=== PATIENT | female | born 1985 | race African-American/Black ===

== ENCOUNTER 2017-04-17 21:13 | Emergency (ER) | payer OTHER ==
[2017-04-17] MEDS ORDERED: IBUPROFEN 600 MG TABLET PO ONE (23:48)
[2017-04-17] MEDS ORDERED: LORAZEPAM 1 MG TABLET PO ONE (23:48)
--- NOTE | 2017-04-18 01:17 | RADIOLOGY REPORT (SQ) ---
EXAM DESCRIPTION: CHEST SINGLE VIEW COMPLETED DATE/TIME: 04/18/2017 12:38 am REASON FOR STUDY: sob COMPARISON: None. EXAM PARAMETERS: NUMBER OF VIEWS: One view. TECHNIQUE: Single frontal radiographic view of the chest acquired. RADIATION DOSE: NA LIMITATIONS: None. FINDINGS: LUNGS AND PLEURA: No opacities, masses or pneumothorax. No pleural effusion. MEDIASTINUM AND HILAR STRUCTURES: No masses. Contour normal. HEART AND VASCULAR STRUCTURES: Heart normal in size. Normal vasculature. BONES: No acute findings. Moderate dextroconvexity of the mid thoracic spine. HARDWARE: None in the chest. OTHER: No other significant finding. IMPRESSION: NO ACUTE RADIOGRAPHIC FINDING IN THE CHEST. TECHNICAL DOCUMENTATION: JOB ID: [id number]
--- NOTE | 2017-04-18 01:31 | ER Document Report ---
ED General - General Chief Complaint: Chest Wall Pain Stated Complaint: CHEST,NECK PAIN Time Seen by Provider: 04/17/17 23:40 Notes: Patient is a 31-year-old female without past medical history who presents with multiple complaints. Patient's main concern is that she has been having a sharp , stabbing pain to the left posterior scalp at the level of the occiput. The pain is intermittent and stabbing nature. Nothing improves or worsens the pain. Patient denies any trauma to the area. She has never had similar symptoms in the past. She denies seeing her primary care doctor regarding this concern. She felt that the pain was radiating from the back of her scalp down to her neck and chest today which is what prompted her come to the emergency department. She states the pain is no longer in her chest or neck only in the posterior aspect of her scalp. She denies any fever or constitutional symptoms. No associated nausea, vomiting or diaphoresis. She denies any cardiac history. No history of DVT or pulmonary embolus. She denies any pleuritic pain. No use of estrogen. TRAVEL OUTSIDE OF THE [place] IN LAST 30 DAYS: No - Related Data Allergies/Adverse Reactions: metoclopramide [From Reglan] Adverse Reaction (Verified 04/17/17 22:55) Past Medical History - General Information source: Patient - Social History Smoking Status: Never Smoker Frequency of alcohol use: None Drug Abuse: None Lives with: Spouse/Significant other Family History: Reviewed & Not Pertinent - Past Medical History Cardiac Medical History: Denies: Hx Heart Attack, Hx Hypertension Pulmonary Medical History: Reports: Hx Pneumonia - Hx of 2005 Denies: Hx Asthma, Hx Bronchitis, Hx COPD Neurological Medical History: Denies: Hx Cerebrovascular Accident, Hx Seizures Renal/ Medical History: Denies: Hx Peritoneal Dialysis GI Medical History: Musculoskeltal Medical History: Denies Hx Arthritis Infectious Medical History: Past Surgical History: Reports: Hx Cholecystectomy. Denies: Hx Pacemaker - Immunizations Hx Diphtheria, Pertussis, Tetanus Vaccination: Yes Review of Systems - Review of Systems Notes: Constitutional: Negative for fever. HENT: Negative for sore throat. Eyes: Negative for visual changes. Cardiovascular: Positive for chest pain. Respiratory: Negative for shortness of breath. Gastrointestinal: Negative for abdominal pain, vomiting or diarrhea. Genitourinary: Negative for dysuria. Musculoskeletal: Negative for back pain. Skin: Negative for rash. Neurological: Negative for headaches, weakness or numbness. 10 point ROS negative except as marked above and in HPI. Physical Exam - Vital signs Vitals: Temp Pulse Resp BP Pulse Ox 98.7 F 87 20 127/96 H 99 04/17/17 22:31 10 22:31 04/17/17 22:31 04/17/17 22:31 04/17/17 22:31 Interpretation: Normal Notes: PHYSICAL EXAMINATION: GENERAL: Well-appearing, well-nourished and in no acute distress. HEAD: Atraumatic, normocephalic. EYES: Pupils equal round and reactive to light, extraocular movements intact, sclera anicteric, conjunctiva are normal. ENT: nares patent, oropharynx clear without exudates. Moist mucous membranes. NECK: Normal range of motion, supple without lymphadenopathy LUNGS: Breath sounds clear to auscultation bilaterally and equal. No wheezes rales or rhonchi. HEART: Regular rate and rhythm without murmurs ABDOMEN: Soft, nontender, normoactive bowel sounds. No guarding, no rebound. No masses appreciated. EXTREMITIES: Normal range of motion, no pitting or edema. No cyanosis. NEUROLOGICAL: No focal neurological deficits. Moves all extremities spontaneously and on command. PSYCH: Normal mood, normal affect. SKIN: Warm, Dry, normal turgor, no rashes or lesions noted. No appreciable swelling or deformity to the left posterior scalp where patient reports pain Course - Re-evaluation Re-evalutation: 04/18/17 01:26 Patient presents with multiple vague complaints that did not appear to be concerning for any acute life-threatening pathology. Vitals are within normal limits at triage and at time of discharge. Physical examination is unremarkable. Patient has tolerated oral intake without difficulty. Patient was not noted to be in distress at any point during their ER visit. A single troponin was obtained as patient was complaining of chest pain and neck pain which is noted to be normal. Chest x-rays likewise clear. She did complain of pharyngeal symptoms and has no evidence of an acute tonsillitis, epiglottitis, Avi's angina, or an acute dental infection. At this time, based on the reassuring evaluation, I do not suspect an acute TN, pulmonary embolus, aortic dissection, acute intra-abdominal pathology, stroke, or sepsis.Will discharge with return precautions and follow-up recommendations. Verbal discharge instructions given a the bedside and opportunity for questions given. Medication warnings reviewed. Patient is in agreement with this plan and has verbalized understanding of return precautions and the need for primary care follow-up in the next 24-72 hours. - Vital Signs Vital signs: Temp Pulse Resp BP Pulse Ox 98.5 F 78 18 130/93 H 99 04/18/17 01:40 04/18/17 01:40 04/18/17 01:40 04/18/17 01:40 04/18/17 01:40 - Diagnostic Test Radiology reviewed: Image reviewed, Reports reviewed Radiology results interpreted by me: 04/18/17 02:23 Chest x-ray: No acute infiltrate or pneumothorax - EKG Interpretation by Me Additional EKG results interpreted by me: 04/18/17 02:23 Normal sinus rhythm. Rate 85. No ST elevations or depressions. QTC is 419. Discharge - Discharge Clinical Impression: Neck pain Chest pain Qualifiers: Chest pain type: unspecified Qualified Code(s): R07.9 - Chest pain, unspecified Condition: Good Disposition: HOME, SELF-CARE Additional Instructions: Please return to the emergency room immediately if you experience any concerning symptoms including high fevers, severe headache, chest pain, difficulty breathing, abdominal pain, slurred speech, numbness or weakness in your arms or legs, or any other symptom that concerns you. Forms: Return to Work
[2017-04-18 01:42] VITALS: BP 130/93
--- NOTE | 2017-04-18 08:10 | EKG REPORT ---
SEVERITY:- NORMAL ECG - SINUS RHYTHM : Confirmed by: Aparna Mims 18-Apr-2017 08:09:16
== END 2017-04-18 01:40 | disposition home or self-care (01) ==
LOC: ER 21:13
DX: R07.9 Chest pain, unspecified (principal); M54.2 Cervicalgia; Z90.49 Acquired absence of other specified parts of digestive tract
CPT/HCPCS: 36415; 71010; 84484; 93005; 93010; 99284

== ENCOUNTER 2017-12-14 23:54 | Emergency (ER) | payer OTHER ==
[2017-12-15] MEDS ORDERED: ONDANSETRON ODT 4 MG TAB (6 TAB/ER DISP) PO PRN (01:26)
[2017-12-15] MEDS ORDERED: ONDANSETRON 4 MG TAB.RAPDIS PO ONE (01:26)
[2017-12-15] MEDS ORDERED: BUTALB/ACETAMINOPHEN/CAFFEINE 1 TAB EACH PO ONE (01:28)
--- NOTE | 2017-12-15 01:28 | ER Document Report ---
ED General - General Chief Complaint: Headache Stated Complaint: HEADACHE Time Seen by Provider: 12/15/17 00:58 TRAVEL OUTSIDE OF THE [place] IN LAST 30 DAYS: No - HPI Patient complains to provider of: Frontal headache nausea Notes: States happened prior to arrival no history of headaches states mild intensity. Patient states headache encouraged to take her blood pressure was elevated at home because the patient has some concern therefore came to the ER for further evaluation. Patient currently is not taking any medications denies any history of hypertension. Patient denies any recent travel or head trauma denies any fever chills nausea vomiting diarrhea. Patient is very delightful and smiling on evaluation denies any neck pain. - Related Data Allergies/Adverse Reactions: metoclopramide [From [employer]] Adverse Reaction (Verified 04/17/17 22:55) Past Medical History - Social History Smoking Status: Never Smoker Chew tobacco use (# tins/day): No Frequency of alcohol use: None Drug Abuse: None Family History: Reviewed & Not Pertinent Patient has suicidal ideation: No Patient has homicidal ideation: No - Past Medical History Cardiac Medical History: Denies: Hx Heart Attack, Hx Hypertension Pulmonary Medical History: Reports: Hx Pneumonia - Hx of 2005 Denies: Hx Asthma, Hx Bronchitis, Hx COPD Neurological Medical History: Denies: Hx Cerebrovascular Accident, Hx Seizures Renal/ Medical History: Denies: Hx Peritoneal Dialysis GI Medical History: Musculoskeltal Medical History: Denies Hx Arthritis Infectious Medical History: Past Surgical History: Reports: Hx Cholecystectomy. Denies: Hx Pacemaker - Immunizations Hx Diphtheria, Pertussis, Tetanus Vaccination: Yes Review of Systems - Review of Systems Constitutional: No symptoms reported EENT: No symptoms reported Cardiovascular: No symptoms reported Respiratory: No symptoms reported Gastrointestinal: No symptoms reported Genitourinary: No symptoms reported Female Genitourinary: No symptoms reported Musculoskeletal: No symptoms reported Skin: No symptoms reported Hematologic/Lymphatic: No symptoms reported Neurological/Psychological: Headaches -: Yes All other systems reviewed and negative Physical Exam - Vital signs Vitals: Temp Pulse Resp BP Pulse Ox 98.6 F 86 18 144/104 H 98 12/14/17 23:58 12/14/17 23:58 12/14/17 23:58 12/14/17 23:58 12/14/17 23:58 Interpretation: Normal - General General appearance: Appears well, Alert - HEENT Head: Normocephalic, Atraumatic Eyes: Normal Pupils: PERRL - Respiratory Respiratory status: No respiratory distress Chest status: Nontender Breath sounds: Normal Chest palpation: Normal - Cardiovascular Rhythm: Regular Heart sounds: Normal auscultation Murmur: No - Abdominal Inspection: Normal Distension: No distension Bowel sounds: Normal Tenderness: Nontender Organomegaly: No organomegaly - Back Back: Normal, Nontender - Extremities General upper extremity: Normal inspection, Nontender, Normal color, Normal ROM , Normal temperature General lower extremity: Normal inspection, Nontender, Normal color, Normal ROM , Normal temperature, Normal weight bearing. No: Yifan's sign - Neurological Neuro grossly intact: Yes Cognition: Normal Orientation: AAOx4 Allan Coma Scale Eye Opening: Spontaneous [place] Coma Scale Verbal: Oriented [place] Coma Scale Motor: Obeys Commands [place] Coma Scale Total: 15 Speech: Normal Motor strength normal: LUE, RUE, LLE, RLE Sensory: Normal - Psychological Associated symptoms: Normal affect, Normal mood - Skin Skin Temperature: Warm Skin Moisture: Dry Skin Color: Normal Course - Re-evaluation Re-evalutation: 12/15/17 04:26 Patient with a frontal headache possibly component of a tension headache. Multiple treatment options and modalities were reviewed with the patient I did recommend Tylenol Motrin along with lidocaine patch to back neck initially was going to get the patient Compazine Zofran however states that she has a bad reaction with Reglan therefore held off on the Compazine give the patient Zofran for nausea will give the patient Fioricet if Tylenol Motrin and lidocaine patch does not work she agrees with this treatment modality did educate the patient about hypertension patient otherwise neurologically intact smiling laughing with a normal physical examination will discharge home - Vital Signs Vital signs: Temp Pulse Resp BP Pulse Ox 98.3 F 86 16 133/102 H 100 12/15/17 01:38 12/14/17 23:58 12/15/17 01:38 12/15/17 01:38 12/15/17 01:38 Discharge - Discharge Clinical Impression: Nausea Headache Qualifiers: Headache type: tension-type Headache chronicity pattern: unspecified pattern Intractability: not intractable Qualified Code(s): G44.209 - Tension-type headache, unspecified, not intractable Hypertension Qualifiers: Hypertension type: unspecified Qualified Code(s): I10 - Essential (primary) hypertension Condition: Good Disposition: HOME, SELF-CARE Instructions: Family Physicians / Practices, Tension Headache ([facility]) Additional Instructions: Your physical examination is not reveal any significant pathology. More likely you are experiencing a tension headache. Please follow-up with your primary care physician. Please take medications as prescribed I would also recommend taking 600 mg of motrin and 650-1000 mg of Tylenol with the Motrin 3 times a day. I recommend following up with your physician or the physicians is provided for further evaluation of your blood pressure. Prescriptions: Butalb/Acetaminophen/Caffeine [Fioricet (50-325-40 mg) Tablet] 1 tab PO Q6 #14 tab Ondansetron [Zofran Odt] 4 mg PO Q6 PRN #30 tab.rapdis PRN Reason: For Nausea/Vomiting Forms: Elevated Blood Pressure Referrals: RO JAIN MD [Primary Care Provider] - Follow up in 3-5 days
[2017-12-15 01:44] VITALS: BP 133/102
== END 2017-12-15 01:44 | disposition home or self-care (01) ==
LOC: ER 23:54
DX: G44.209 Tension-type headache, unspecified, not intractable (principal); R11.0 Nausea; R03.0 Elevated blood-pressure reading, without diagnosis of hypertension; Z90.49 Acquired absence of other specified parts of digestive tract
CPT/HCPCS: 99284; J3490; S0119

== ENCOUNTER 2017-12-16 15:31 | Emergency (ER) | payer OTHER ==
[2017-12-16] MEDS ORDERED: ONDANSETRON 4 MG TAB.RAPDIS PO ONE (15:57)
[2017-12-16] MEDS ORDERED: KETOROLAC TROMETHAMINE 10 MG TABLET PO ONE (15:58)
--- NOTE | 2017-12-16 15:58 | ER Document Report ---
ED Medical Screen (RME) - General Chief Complaint: Numbness of Arm Stated Complaint: CHILLS/ARM NUMBNESS Time Seen by Provider: 12/16/17 15:51 Mode of Arrival: Ambulatory Information source: Patient Notes: 32 yr old female presents with chills, body aches nausea vomtiing I have greeted and performed a rapid initial assessment of this patient. A comprehensive ED assessment and evaluation of the patient, analysis of test results and completion of the medical decision making process will be conducted by additional ED providers. PHYSICAL EXAMINATION: GENERAL: Well-appearing, well-nourished and in no acute distress. HEAD: Atraumatic, normocephalic. EYES: Pupils equal round extraocular movements intact, conjunctiva are normal. ENT: Nares patent NECK: Normal range of motion LUNGS: No respiratory distress Musculoskeletal: Normal range of motion NEUROLOGICAL: Normal speech, normal gait. PSYCH: Normal mood, normal affect. SKIN: Warm, Dry, normal turgor, no rashes or lesions noted. TRAVEL OUTSIDE OF THE [place] IN LAST 30 DAYS: No - Related Data Allergies/Adverse Reactions: metoclopramide [From Reglan] Adverse Reaction (Verified 12/16/17 15:32) Past Medical History - Past Medical History Cardiac Medical History: Reports: Hx Hypertension Denies: Hx Heart Attack Pulmonary Medical History: Reports: Hx Pneumonia - Hx of 2005 Denies: Hx Asthma, Hx Bronchitis, Hx COPD Neurological Medical History: Denies: Hx Cerebrovascular Accident, Hx Seizures Renal/ Medical History: Denies: Hx Peritoneal Dialysis GI Medical History: Musculoskeltal Medical History: Denies Hx Arthritis Infectious Medical History: Past Surgical History: Reports: Hx Cholecystectomy. Denies: Hx Pacemaker - Immunizations Hx Diphtheria, Pertussis, Tetanus Vaccination: Yes Physical Exam - Vital signs Vitals: Temp Pulse Resp BP Pulse Ox 98.6 F 117 H 24 H 155/115 H 97 12/16/17 15:36 12/16/17 15:36 12/16/17 15:36 12/16/17 15:36 12/16/17 15:36 Course - Vital Signs Vital signs: Temp Pulse Resp BP Pulse Ox 98.6 F 117 H 24 H 155/115 H 97 12/16/17 15:36 12/16/17 15:36 12/16/17 15:36 12/16/17 15:36 12/16/17 15:36 Doctor's Discharge - Discharge Referrals: RO JAIN MD [Primary Care Provider] - Follow up as needed
--- NOTE | 2017-12-16 18:00 | ER Document Report ---
ED General - General Chief Complaint: Numbness of Arm Stated Complaint: CHILLS/ARM NUMBNESS Time Seen by Provider: 12/16/17 15:51 Mode of Arrival: Ambulatory Notes: The patient is a 32-year-old female who presents with intermittent tingling in her hands and intermittent headaches. On arrival to the ER, she is having no symptoms at this time. She denies neck pain, blurry vision, fevers, abdominal pain, nausea, vomiting, diarrhea, chest pain or shortness of breath. TRAVEL OUTSIDE OF THE [place] IN LAST 30 DAYS: No - Related Data Allergies/Adverse Reactions: metoclopramide [From Reglan] Adverse Reaction (Verified 12/16/17 15:32) Past Medical History - General Information source: Patient - Social History Smoking Status: Never Smoker Family History: Reviewed & Not Pertinent Patient has suicidal ideation: No Patient has homicidal ideation: No - Past Medical History Cardiac Medical History: Reports: Hx Hypertension Denies: Hx Heart Attack Pulmonary Medical History: Reports: Hx Pneumonia - Hx of 2005 Denies: Hx Asthma, Hx Bronchitis, Hx COPD Neurological Medical History: Denies: Hx Cerebrovascular Accident, Hx Seizures Renal/ Medical History: Denies: Hx Peritoneal Dialysis GI Medical History: Musculoskeltal Medical History: Denies Hx Arthritis Infectious Medical History: Past Surgical History: Reports: Hx Cholecystectomy. Denies: Hx Pacemaker - Immunizations Hx Diphtheria, Pertussis, Tetanus Vaccination: Yes Review of Systems - Review of Systems Notes: REVIEW OF SYSTEMS: CONSTITUTIONAL: -fevers, -chills EENT: -eye pain, -difficulty swallowing, -nasal congestion CARDIOVASCULAR: -chest pain, -syncope. RESPIRATORY: -cough, -SOB GASTROINTESTINAL: -abdominal pain, -nausea, -vomiting, -diarrhea GENITOURINARY: -dysuria, -hematuria MUSCULOSKELETAL: -back pain, -neck pain SKIN: -rash or skin lesions. HEMATOLOGIC: -easy bruising or bleeding. LYMPHATIC: -swollen, enlarged glands. NEUROLOGICAL: -altered mental status or loss of consciousness, +headache, +hand tingling PSYCHIATRIC: -anxiety, -depression. ALL OTHER SYSTEMS REVIEWED AND NEGATIVE. Physical Exam - Vital signs Vitals: Temp Pulse Resp BP Pulse Ox 98.6 F 117 H 24 H 155/115 H 97 12/16/17 15:36 12/16/17 15:36 12/16/17 15:36 12/16/17 15:36 12/16/17 15:36 - Notes Notes: PHYSICAL EXAMINATION: GENERAL: Well-appearing, well-nourished and in no acute distress. HEAD: Atraumatic, normocephalic. EYES: Pupils equal round and reactive to light, extraocular movements intact, sclera anicteric, conjunctiva are normal. ENT: nares patent, oropharynx clear without exudates. Moist mucous membranes. NECK: Normal range of motion, supple without lymphadenopathy LUNGS: Breath sounds clear to auscultation bilaterally and equal. No wheezes rales or rhonchi. HEART: Tachycardia, regular rhythm ABDOMEN: Soft, nontender, normoactive bowel sounds. No guarding, no rebound. No masses appreciated. EXTREMITIES: Normal range of motion, no pitting or edema. No cyanosis. NEUROLOGICAL: Cranial nerves grossly intact. Normal speech, normal gait. Normal sensory and motor exams. PSYCH: Normal mood, normal affect. SKIN: Warm, Dry, normal turgor, no rashes or lesions noted. Course - Re-evaluation Re-evalutation: Patient appears well and is having no symptoms upon my evaluation. She was mildly tachycardic, so blood work and IV fluids provided to patient. Blood work is unremarkable, other than a slight leukocytosis, which she has had higher values in the past. After 2 L IV fluids, her tachycardia resolved. No symptoms at this time. Instructed her to keep hydrated and follow with her primary care physician for further evaluation treatment. - Vital Signs Vital signs: Temp Pulse Resp BP Pulse Ox 99.6 F 117 H 15 120/93 H 98 12/16/17 20:29 12/16/17 15:36 12/16/17 20:29 12/16/17 20:29 12/16/17 20:29 - Laboratory Result Diagrams: 12/16/17 18:05 12/16/17 18:05 Laboratory results interpreted by me: 12/16/17 12/16/17 18:05 18:05 WBC 12.1 H RBC 5.44 H MCV 75 L MCH 24.6 L RDW 14.8 H Seg Neuts % (Manual) 92 H Lymphocytes % (Manual) 3 L Monocytes % (Manual) 0 L Abs Neuts (Manual) 11.1 H Abs Lymphs (Manual) 0.4 L Abs Monocytes (Manual) 0.0 L AST 43 H Discharge - Discharge Clinical Impression: Tingling of upper extremity Condition: Stable Disposition: HOME, SELF-CARE Additional Instructions: Drink plenty of fluids and follow-up with your primary care physician for further evaluation and treatment. You may take Tylenol Motrin for any headaches. Return to the ER if you notice any worsening symptoms or have any other concerns. Forms: Elevated Blood Pressure Referrals: RO JAIN MD [Primary Care Provider] - Follow up as needed
[2017-12-16 18:05] LABS: APPEARANCE,URINE CLEAR; BILIRUBIN,URINE NEGATIVE (NEGATIVE); COLOR,URINE YELLOW; GLUCOSE, URINE NEGATIVE (NEGATIVE); KETONES,URINE NEGATIVE (NEGATIVE); LEUKOCYTE ESTERASE,URINE NEGATIVE (NEGATIVE); NITRITE,URINE NEGATIVE (NEGATIVE); PROTEIN,URINE NEGATIVE (NEGATIVE); URINE SPECIFIC GRAVITY 1.019; UROBILINOGEN,URINE NEGATIVE mg/dL (<2.0)
[2017-12-16] MEDS: NORMAL SALINE 1000 ML 1,000 ML IV PRN ×2 (18:11→18:58)
[2017-12-16 18:44] LABS: HEMOGLOBIN 13.4 g/dL (12.0-15.5); MEAN CORPUSCULAR HEMOGLOBIN 24.6 pg (27.0-33.4); MEAN CORPUSCULAR HGB CONC 32.6 g/dL (32.0-36.0); MEAN CORPUSCULAR VOLUME 75 fl (80-97); PLATELET COUNT 331 10^3/uL (150-450); RED BLOOD COUNT 5.44 10^6/uL (3.72-5.28); RED CELL DISTRIBUTION WIDTH 14.8 % (11.5-14.0); WHITE BLOOD COUNT 12.1 10^3/uL (4.0-10.5)
[2017-12-16 18:54] LABS: ALANINE AMINOTRANSFERASE 22 U/L (9-52); ALBUMIN 4.1 g/dL (3.5-5.0); ALKALINE PHOSPHATASE 123 U/L (38-126); ANION GAP 13 (5-19); ASPARTATE AMINO TRANSFERASE 43 U/L (14-36); BILIRUBIN,DIRECT 0.4 mg/dL (0.0-0.4); BILIRUBIN,TOTAL 0.6 mg/dL (0.2-1.3); BLOOD UREA NITROGEN 12 mg/dL (7-20); CALCIUM 9.5 mg/dL (8.4-10.2); CARBON DIOXIDE 27 mmol/L (22-30); CHLORIDE 103 mmol/L (98-107); GLUCOSE 84 mg/dL (75-110); POTASSIUM 3.8 mmol/L (3.6-5.0); SODIUM 142.8 mmol/L (137-145); TOTAL PROTEIN 7.5 g/dL (6.3-8.2)
[2017-12-16 19:07] LABS: ABSOLUTE LYMPHOCYTES# (MANUAL) 0.4 10^3/uL (0.5-4.7); ABSOLUTE NEUTROPHILS# (MANUAL) 11.1 10^3/uL (1.7-8.2); BASOPHILS % (MANUAL) 0 % (0-2); EOSINOPHILS % (MANUAL) 5 % (0-6); LYMPHOCYTES % (MANUAL) 3 % (13-45); MONOCYTES % (MANUAL) 0 % (3-13); SEGMENTED NEUTROPHILS % (MAN) 92 % (42-78); TOTAL CELLS COUNTED 100
[2017-12-16 19:08] LABS: ANISOCYTOSIS SLIGHT; HYPOCHROMASIA SLIGHT; PLATELET COMMENT ADEQUATE
[2017-12-16 19:11] LABS: FREE T3 3.23 pg/mL (2.77-5.27); FREE T4 (FREE THYROXINE) 1.2 ng/dL (0.78-2.19)
[2017-12-16 19:25] LABS: THYROID STIMULATING HORMONE 0.64 uIU/mL (0.47-4.68)
[2017-12-16 20:32] VITALS: BP 120/93
== END 2017-12-16 20:33 | disposition home or self-care (01) ==
LOC: ER 15:31
DX: R20.2 Paresthesia of skin (principal); R51 Headache; I10 Essential (primary) hypertension; R00.0 Tachycardia, unspecified
CPT/HCPCS: 99284; 96360; 96361; 36415; 84439; 84443; 85025; 81025; 80053; 81001; 84481; S0119; J7030; J3490

== ENCOUNTER 2018-04-01 10:56 | Emergency (ER) | payer OTHER ==
[2018-04-01] MEDS ORDERED: BUTALB/ACETAMINOPHEN/CAFFEINE 1 TAB EACH PO ONE (11:30)
[2018-04-01] MEDS ORDERED: DIPHENHYDRAMINE HCL 50 MG CAPSULE PO ONE (11:30)
[2018-04-01] MEDS ORDERED: IBUPROFEN 800 MG TABLET PO ONE (11:30)
[2018-04-01] MEDS ORDERED: ONDANSETRON 4 MG TAB.RAPDIS PO ONE (11:31)
--- NOTE | 2018-04-01 11:35 | ER Document Report ---
ED General - General Chief Complaint: Headache Stated Complaint: BLOOD PRESSURE ISSUE Time Seen by Provider: 04/01/18 11:08 Mode of Arrival: Ambulatory Information source: Patient, [facility] Records Notes: 32-year-old female presents with complaint of headache and nausea. Patient states symptoms started 1 day prior to arrival. Headache is located in her forehead and described as a mild throbbing pain. Patient has had associated nausea without vomiting. She denies photophobia, blurred vision, slurred speech , difficulty with ambulation, head injury, fever, recent illness. Patient has had prior similar headaches. She states that she was prescribed medication recently but has not been able to fill it yet. Patient also states that she has been out of her depression medication for a few weeks. We will prompted her to come to the emergency room is that she checked her blood pressure on a home blood pressure machine and it read 178/58. Upon her arrival to the emergency department blood pressure is 130/90. TRAVEL OUTSIDE OF THE [place] IN LAST 30 DAYS: No - HPI Onset: Yesterday Onset/Duration: Gradual, Persistent Quality of pain: Throbbing Severity: Mild Associated symptoms: Nausea. denies: Chest pain, Fever, Vomiting, Shortness of breath Exacerbated by: Denies Relieved by: Denies Similar symptoms previously: Yes Recently seen / treated by doctor: Yes - Related Data Allergies/Adverse Reactions: metoclopramide [From Reglan] Adverse Reaction (Verified 12/16/17 15:32) Past Medical History - General Information source: Patient - Social History Smoking Status: Never Smoker Frequency of alcohol use: None Drug Abuse: None Lives with: Family Family History: Reviewed & Not Pertinent Patient has suicidal ideation: No Patient has homicidal ideation: No - Past Medical History Cardiac Medical History: Reports: Hx Hypertension Denies: Hx Heart Attack Pulmonary Medical History: Reports: Hx Pneumonia - Hx of 2005 Denies: Hx Asthma, Hx Bronchitis, Hx COPD Neurological Medical History: Denies: Hx Cerebrovascular Accident, Hx Seizures Renal/ Medical History: Denies: Hx Peritoneal Dialysis GI Medical History: Musculoskeletal Medical History: Denies Hx Arthritis Infectious Medical History: Past Surgical History: Reports: Hx Cholecystectomy. Denies: Hx Pacemaker - Immunizations Hx Diphtheria, Pertussis, Tetanus Vaccination: Yes Review of Systems - Review of Systems Notes: REVIEW OF SYSTEMS: CONSTITUTIONAL : Denies fever, chills, or sweats. Denies recent illness. Denies weight loss, recent hospitalizations. EENT: Denies visual changes, eye pain. Denies sore throat, oral lesions, difficulty swallowing. CARDIOVASCULAR: Denies chest pain. Denies palpitations. Denies lower extremity edema. RESPIRATORY: Denies cough. Denies shortness of breath, wheezing. GASTROINTESTINAL: Denies abdominal pain or distention. Denies vomiting, or diarrhea. Denies blood in vomitus, stools, or per rectum. Denies black, tarry stools. Denies constipation. GENITOURINARY: Denies difficulty urinating, painful urination, frequency, blood in urine, or vaginal discharge. MUSCULOSKELETAL: Denies back or neck pain or stiffness. Denies joint pain or swelling. SKIN: Denies rash, lesions or sores. HEMATOLOGIC : Denies easy bruising or bleeding. LYMPHATIC: Denies swollen glands. NEUROLOGICAL: Denies confusion or altered mental status. Denies loss of consciousness. Denies dizziness or lightheadedness. Denies weakness or paralysis. Denies problems difficulty with ambulation, slurred speech. Denies sensory loss, numbness, or tingling. Denies seizures. PSYCHIATRIC: Denies anxiety or stress. Denies depression, suicidal ideation, or homicidal ideation. Denies visual or auditory hallucinations. Physical Exam - Vital signs Vitals: Temp Pulse Resp BP Pulse Ox 98.9 F 88 14 137/90 H 98 04/01/18 11:01 04/01/18 11:01 04/01/18 11:01 04/01/18 11:01 04/01/18 11:01 Interpretation: Hypertensive. No: Hypoxic, Febrile - Notes Notes: PHYSICAL EXAMINATION: GENERAL: Well-appearing, well-nourished and in no acute distress. HEAD: Atraumatic, normocephalic. EYES: Pupils equal round and reactive to light, extraocular movements intact, conjunctiva are normal. ENT: Nares patent, oropharynx clear without exudates. Moist mucous membranes. NECK: Normal range of motion, supple without lymphadenopathy LUNGS: Breath sounds clear to auscultation bilaterally and equal. No wheezes rales or rhonchi. HEART: Regular rate and rhythm without murmurs ABDOMEN: Soft, nontender, nondistended abdomen. No guarding, no rebound. No masses appreciated. Female : deferred Musculoskeletal: Normal range of motion, no pitting or edema. No cyanosis. NEUROLOGICAL: Cranial nerves grossly intact. Normal speech, normal gait. Normal sensory, motor exams PSYCH: Normal mood, normal affect. SKIN: Warm, Dry, normal turgor, no rashes or lesions noted. Course - Re-evaluation Re-evalutation: 32-year-old female presents with complaint of headache and nausea. Patient states symptoms started 1 day prior to arrival. Headache is located in her forehead and described as a mild throbbing pain. Patient has had associated nausea without vomiting. She denies photophobia, blurred vision, slurred speech , difficulty with ambulation, head injury, fever, recent illness. Patient has had prior similar headaches. Vital signs reviewed and within normal limits upon arrival. Patient has a normal neurologic, funduscopic and physical exam. Patient was given Fioricet, Benadryl, Motrin and Zofran during her ED course. On reevaluation patient is smiling and reports improvement of her headache. 04/01/18 12:34 Patient reports improvement of her headache. Prescription for Fioricet was provided to the patient. Patient was evaluated and treated as appropriate for the patient's presenting symptoms and complaint, with consideration of any critical or life threatening conditions that may be associated with their obtained history and exam as noted above. Patient provided the opportunity to ask questions, and express concerns. Patient was educated on treatments based on their presumed diagnosis as noted above. At this time we will discharge the patient with return precautions and follow-up recommendations. Verbal discharge instructions given a the bedside. Medication warnings reviewed. Patient is in agreement with this plan and has verbalized understanding of return precautions. After careful consideration I feel that that patient can be safely discharged from the emergency department, they were advised to followup with a primary care physician in 2-3 days. Dictation on this chart was performed using voice recognition software and may result in unintended grammatical, spelling, syntax or errors. 04/02/18 15:34 04/02/18 15:34 - Vital Signs Vital signs: Temp Pulse Resp BP Pulse Ox 98.9 F 74 18 130/99 H 99 04/01/18 11:01 04/01/18 12:27 04/01/18 12:27 04/01/18 12:27 04/01/18 12:27 Discharge - Discharge Clinical Impression: Nausea, Elevated blood pressure reading Headache Qualifiers: Headache type: unspecified Headache chronicity pattern: acute headache Intractability: not intractable Qualified Code(s): R51 - Headache Condition: Good Disposition: HOME, SELF-CARE Instructions: Antinausea Medication ([facility]), Use of Diphenhydramine, Headache ( [facility]) Additional Instructions: You have been seen in the Emergency Department (ED) for a headache. Please use Tylenol (acetaminophen) or Motrin (ibuprofen) as needed for symptoms, but only as written on the box. As we have discussed, please follow up with your primary care doctor as soon as possible regarding today's ED visit and your headache symptoms. Call your doctor or return to the ED if you have a worsening headache, sudden and severe headache, confusion, slurred speech, facial droop, weakness or numbness in any arm or leg, extreme fatigue, or other symptoms that concern you. Prescriptions: Butalb/Acetaminophen/Caffeine [Fioricet (50-325-40 mg) Tablet] 1 tab PO Q6H PRN #12 tab PRN Reason: Forms: Elevated Blood Pressure Referrals: RO JAIN MD [Primary Care Provider] - Follow up as needed
[2018-04-01 12:28] VITALS: BP 130/99
== END 2018-04-01 12:35 | disposition home or self-care (01) ==
LOC: ER 10:56
DX: R11.0 Nausea (principal); R51 Headache; R03.0 Elevated blood-pressure reading, without diagnosis of hypertension; I10 Essential (primary) hypertension; Z90.49 Acquired absence of other specified parts of digestive tract
CPT/HCPCS: 99283; J3490; S0119

== ENCOUNTER 2018-08-05 19:27 | Emergency (ER) | payer OTHER ==
[2018-08-05] MEDS ORDERED: NORMAL SALINE 1000 ML 1,000 ML IV ONE (20:45)
[2018-08-05 21:45] LABS: A TYPE INFLUENZA AG POSITIVE (NEGATIVE); B INFLUENZA AG NEGATIVE (NEGATIVE)
[2018-08-05 21:51] LABS: ABSOLUTE LYMPHOCYTES (AUTO) 0.4 10^3/uL (0.5-4.7); ABSOLUTE MONOCYTES (AUTO) 0.5 10^3/uL (0.1-1.4); ABSOLUTE NEUT (AUTO) 4.2 10^3/uL (1.7-8.2); BASOPHILS % (AUTO) 0.4 % (0-2); EOSINOPHILS % (AUTO) 0.1 % (0-6); HEMATOCRIT 41.1 % (36.0-47.0); HEMOGLOBIN 13.6 g/dL (12.0-15.5); LYMPHOCYTES % (AUTO) 7.7 % (13-45); MEAN CORPUSCULAR HEMOGLOBIN 24.8 pg (27.0-33.4); MEAN CORPUSCULAR HGB CONC 33.1 g/dL (32.0-36.0); MEAN CORPUSCULAR VOLUME 75 fl (80-97); MONOCYTES % (AUTO) 10.6 % (3-13); PLATELET COUNT 356 10^3/uL (150-450); RED BLOOD COUNT 5.48 10^6/uL (3.72-5.28); RED CELL DISTRIBUTION WIDTH 15.4 % (11.5-14.0); SEGMENTED NEUTROPHILS % (AUTO) 81.2 % (42-78); TOTAL CELLS COUNTED % (AUTO) 100 %; WHITE BLOOD COUNT 5.1 10^3/uL (4.0-10.5)
[2018-08-05 22:07] LABS: ANION GAP 10 (5-19); BLOOD UREA NITROGEN 11 mg/dL (7-20); CALCIUM 9.2 mg/dL (8.4-10.2); CARBON DIOXIDE 26 mmol/L (22-30); CHLORIDE 106 mmol/L (98-107); GLUCOSE 110 mg/dL (75-110); POTASSIUM 3.9 mmol/L (3.6-5.0); SODIUM 142.2 mmol/L (137-145)
--- NOTE | 2018-08-05 22:30 | ER Document Report ---
ED General - General Chief Complaint: Breathing Difficulty Stated Complaint: SHORTNESS OF BREATH Time Seen by Provider: 08/05/18 20:30 Primary Care Provider: RO JAIN MD [Primary Care Provider] - Follow up as needed TRAVEL OUTSIDE OF THE [place] IN LAST 30 DAYS: No - HPI Notes: Patient presents to the emergency department for evaluation. She has had fever, cough, nausea. She was seen at an urgent care yesterday and diagnosed with bronchitis. She was treated with multiple medications including Zithromax and prednisone. She is not feeling any improved. She states she felt as if she was having some palpitations earlier today. She denies any chest pain. No dia vomiting. She did not have her influenza vaccination this year. - Related Data Allergies/Adverse Reactions: metoclopramide [From [employer]] Adverse Reaction (Verified 12/16/17 15:32) Past Medical History - General Information source: Patient - Social History Smoking Status: Never Smoker Frequency of alcohol use: Rare Drug Abuse: None Family History: Reviewed & Not Pertinent Patient has suicidal ideation: No Patient has homicidal ideation: No - Past Medical History Cardiac Medical History: Reports: Hx Hypertension Denies: Hx Heart Attack Pulmonary Medical History: Reports: Hx Pneumonia - Hx of 2005 Denies: Hx Asthma, Hx Bronchitis, Hx COPD Neurological Medical History: Denies: Hx Cerebrovascular Accident, Hx Seizures Renal/ Medical History: Denies: Hx Peritoneal Dialysis GI Medical History: Musculoskeletal Medical History: Denies Hx Arthritis Infectious Medical History: Past Surgical History: Reports: Hx Cholecystectomy. Denies: Hx Pacemaker - Immunizations Hx Diphtheria, Pertussis, Tetanus Vaccination: Yes Review of Systems - Review of Systems -: Yes ROS unobtainable due to patient's medical condition Constitutional: Fever, Malaise EENT: Nose congestion Cardiovascular: Palpitations Respiratory: Cough Gastrointestinal: Nausea Musculoskeletal: No symptoms reported Skin: No symptoms reported Hematologic/Lymphatic: No symptoms reported Neurological/Psychological: No symptoms reported Physical Exam - Vital signs Vitals: Temp Pulse Resp BP Pulse Ox 100.0 F 115 H 18 151/101 H 98 08/05/18 19:56 08/05/18 19:56 08/05/18 19:56 08/05/18 19:56 08/05/18 19:56 - Notes Notes: Vital signs reviewed, please refer to chart. Patient is normocephalic, atraumatic. Pupils equal round, reactive to light. Neck is supple without meningismus. Heart is regular rate and rhythm. Lungs are clear to auscultation bilaterally. Abdomen is soft, nontender, normoactive bowel sounds throughout. Extremities without cyanosis, clubbing, edema. Peripheral pulses are equal. Skin is warm and dry. Patient is awake, alert, neurological exam is nonfocal. Course - Re-evaluation Re-evalutation: 08/05/18 22:29 Patient presents to the emergency department for evaluation. Her lungs are clear. Influenza swab was found to be negative. Laboratory medications are largely unremarkable. She was mildly tachycardic but her heart rate improved. I do suspect all her symptoms are secondary to influenza. She has been on Namenda for treatment. She is told to continue supportive care at home. She actually has a 3-year-old at home is ill with similar symptoms. She is to follow-up with her doctor this week. Return to the emergency department with worsening or new concerning symptoms of any sort. - Vital Signs Vital signs: Temp Pulse Resp BP Pulse Ox 98.8 F 115 H 21 H 136/94 H 99 08/05/18 22:11 08/05/18 19:56 08/05/18 21:01 08/05/18 21:00 08/05/18 21:01 - Laboratory Result Diagrams: 08/05/18 21:35 08/05/18 21:35 Laboratory results interpreted by me: 08/05/18 21:35 RBC 5.48 H MCV 75 L MCH 24.8 L RDW 15.4 H Seg Neutrophils % 81.2 H Lymphocytes % 7.7 L Absolute Lymphocytes 0.4 L Discharge - Discharge Clinical Impression: Influenza A Condition: Good Disposition: HOME, SELF-CARE Instructions: Influenza ([facility]) [id number] Additional Instructions: Stop taking the steroids and the Zithromax. Rest, stay well-hydrated. Follow- up with your doctor in 1-2 weeks. If you develop worsening or new concerning symptoms of any sort, return to the emergency department for evaluation. Referrals: RO JAIN MD [Primary Care Provider] - Follow up as needed
[2018-08-05 22:46] VITALS: BP 141/87
== END 2018-08-05 22:52 | disposition home or self-care (01) ==
LOC: ER 19:27
DX: J10.1 Influenza due to other identified influenza virus with other respiratory manifestations (principal); R50.9 Fever, unspecified; R05 Cough; R11.0 Nausea; R53.81 Other malaise; R00.2 Palpitations; I10 Essential (primary) hypertension; R00.0 Tachycardia, unspecified
CPT/HCPCS: 36415; 80048; 85025; 87040; 87804; 99284

== ENCOUNTER 2019-06-24 11:58 | Emergency (ER) | payer OTHER ==
[2019-06-24 12:08] VITALS: BP 142/99
[2019-06-24] MEDS ORDERED: DIPHENHYDRAMINE HCL 25 MG CAPSULE PO ONE (13:08)
[2019-06-24] MEDS ORDERED: KETOROLAC TROMETHAMINE 60 MG/2 ML SDV IM ONE (13:08)
--- NOTE | 2019-06-24 13:10 | ER Document Report ---
ED Medical Screen (RME) - General Chief Complaint: Cold Symptoms Stated Complaint: BLOOD PRESSURE CONCERNS Time Seen by Provider: 06/24/19 13:01 Primary Care Provider: RO JAIN MD [Primary Care Provider] - Follow up as needed Mode of Arrival: Ambulatory Information source: Patient Notes: Patient presents emergency department with headache cold symptoms for the past couple days, headache congestion. Reports she took her blood pressure at home and was very high. Reports she has taken ibuprofen this morning without relief of symptoms. She denies fever vomiting diarrhea. She denies pain with void. She denies abdominal pain. Last menstrual period finished this Monday. She reports she has had some relatives that have had strokes. She was worried about the blood pressure. I have greeted and performed a rapid initial assessment of this patient. A comprehensive ED assessment and evaluation of the patient, analysis of test results and completion of the medical decision making process will be conducted by additional ED providers. TRAVEL OUTSIDE OF THE [place] IN LAST 30 DAYS: No - Related Data Allergies/Adverse Reactions: metoclopramide [From Reglan] Adverse Reaction (Verified 12/16/17 15:32) Past Medical History - Social History Frequency of alcohol use: None Drug Abuse: None - Past Medical History Cardiac Medical History: Reports: Hx Hypertension Denies: Hx Heart Attack Pulmonary Medical History: Reports: Hx Pneumonia - Hx of 2005 Denies: Hx Asthma, Hx Bronchitis, Hx COPD Neurological Medical History: Denies: Hx Cerebrovascular Accident, Hx Seizures Renal/ Medical History: Denies: Hx Peritoneal Dialysis GI Medical History: Musculoskeltal Medical History: Denies Hx Arthritis Infectious Medical History: Past Surgical History: Reports: Hx Cholecystectomy. Denies: Hx Pacemaker - Immunizations Hx Diphtheria, Pertussis, Tetanus Vaccination: Yes Physical Exam - Vital signs Vitals: Temp Pulse Resp BP Pulse Ox 98.5 F 89 16 142/99 H 97 06/24/19 12:08 06/24/19 12:08 06/24/19 12:08 06/24/19 12:08 06/24/19 12:08 Course - Vital Signs Vital signs: Temp Pulse Resp BP Pulse Ox 98.5 F 89 16 142/99 H 97 06/24/19 12:08 06/24/19 12:08 06/24/19 12:08 06/24/19 12:08 06/24/19 12:08 Doctor's Discharge - Discharge Referrals: RO JAIN MD [Primary Care Provider] - Follow up as needed
[2019-06-24 13:38] LABS: ABSOLUTE EOSINOPHILS # (AUTO) 0.4 10^3/uL (0.0-0.6); ABSOLUTE LYMPHOCYTES (AUTO) 1.7 10^3/uL (0.5-4.7); ABSOLUTE MONOCYTES (AUTO) 0.7 10^3/uL (0.1-1.4); ABSOLUTE NEUT (AUTO) 4.8 10^3/uL (1.7-8.2); APPEARANCE,URINE CLEAR; BASOPHILS % (AUTO) 0.6 % (0-2); BILIRUBIN,URINE NEGATIVE (NEGATIVE); COLOR,URINE YELLOW; EOSINOPHILS % (AUTO) 5.3 % (0-6); GLUCOSE, URINE NEGATIVE (NEGATIVE); HEMATOCRIT 40.6 % (36.0-47.0); HEMOGLOBIN 13.3 g/dL (12.0-15.5); KETONES,URINE NEGATIVE (NEGATIVE); LEUKOCYTE ESTERASE,URINE SMALL (NEGATIVE); LYMPHOCYTES % (AUTO) 22.7 % (13-45); MEAN CORPUSCULAR HEMOGLOBIN 24.9 pg (27.0-33.4); MEAN CORPUSCULAR HGB CONC 32.8 g/dL (32.0-36.0); MEAN CORPUSCULAR VOLUME 76 fl (80-97); MONOCYTES % (AUTO) 9.1 % (3-13); NITRITE,URINE NEGATIVE (NEGATIVE); PLATELET COUNT 351 10^3/uL (150-450); PROTEIN,URINE NEGATIVE (NEGATIVE); RED BLOOD COUNT 5.33 10^6/uL (3.72-5.28); RED CELL DISTRIBUTION WIDTH 15.5 % (11.5-14.0); SEGMENTED NEUTROPHILS % (AUTO) 62.3 % (42-78); TOTAL CELLS COUNTED % (AUTO) 100 %; URINE SPECIFIC GRAVITY 1.014; UROBILINOGEN,URINE NEGATIVE mg/dL (<2.0); WHITE BLOOD COUNT 7.7 10^3/uL (4.0-10.5)
[2019-06-24 14:20] LABS: ALBUMIN 3.8 g/dL (3.5-5.0); ALKALINE PHOSPHATASE 123 U/L (38-126); ANION GAP 11 (5-19); ASPARTATE AMINO TRANSFERASE 28 U/L (14-36); BILIRUBIN,DIRECT 0.2 mg/dL (0.0-0.4); BILIRUBIN,TOTAL 0.4 mg/dL (0.2-1.3); BLOOD UREA NITROGEN 12 mg/dL (7-20); CALCIUM 9.1 mg/dL (8.4-10.2); CARBON DIOXIDE 29 mmol/L (22-30); CHLORIDE 102 mmol/L (98-107); GLUCOSE 78 mg/dL (75-110); POTASSIUM 3.7 mmol/L (3.6-5.0); TOTAL PROTEIN 7.4 g/dL (6.3-8.2)
--- NOTE | 2019-06-24 15:06 | ER Document Report ---
ED General - General Chief Complaint: Cold Symptoms Stated Complaint: BLOOD PRESSURE CONCERNS Time Seen by Provider: 06/24/19 13:01 Primary Care Provider: RO JAIN MD [Primary Care Provider] - Follow up in 1 week Mode of Arrival: Ambulatory Notes: Patient is a 34-year-old female who presents to the emergency department with a chief complaint of a headache and cold symptoms for the past 3 days. 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 Patient took her blood pressure at home and she states that it was high and she ended up coming here to the emergency department. TRAVEL OUTSIDE OF THE [place] IN LAST 30 DAYS: No - Related Data Allergies/Adverse Reactions: metoclopramide [From [employer]] Adverse Reaction (Verified 12/16/17 15:32) Past Medical History - General Information source: Patient - Social History Smoking Status: Never Smoker Frequency of alcohol use: None Drug Abuse: None Family History: Reviewed & Not Pertinent Patient has suicidal ideation: No Patient has homicidal ideation: No - Past Medical History Cardiac Medical History: Reports: Hx Hypertension Denies: Hx Heart Attack Pulmonary Medical History: Reports: Hx Pneumonia - Hx of 2005 Denies: Hx Asthma, Hx Bronchitis, Hx COPD Neurological Medical History: Denies: Hx Cerebrovascular Accident, Hx Seizures Renal/ Medical History: Denies: Hx Peritoneal Dialysis GI Medical History: Musculoskeletal Medical History: Denies Hx Arthritis Infectious Medical History: Past Surgical History: Reports: Hx Cholecystectomy. Denies: Hx Pacemaker - Immunizations Hx Diphtheria, Pertussis, Tetanus Vaccination: Yes Review of Systems - Review of Systems Notes: REVIEW OF SYSTEMS: CONSTITUTIONAL : Denies recent illness. Denies recent unintentional weight loss. Denies fever, chills, or sweats. EENT: See HPI. CARDIOVASCULAR: Denies chest pain. RESPIRATORY: Denies shortness of breath, cough, congestion, difficulty breathing, or wheezing. GASTROINTESTINAL: Denies nausea, vomiting, and diarrhea. Denies abdominal pain. Denies constipation. GENITOURINARY: Denies difficulty urinating, burning, blood in urine, urgency or frequency. MUSCULOSKELETAL: Denies neck and back pain. Denies joint pain or swelling. SKIN: Denies rash, itchiness, or lesions HEMATOLOGIC : Denies easy bruising or bleeding. LYMPHATIC: Denies swollen, painful, enlarged glands. NEUROLOGICAL: Denies no numbness or tingling denies weakness. Denies headache. Denies altered mental status. Denies alteration in speech. PSYCHIATRIC: Denies stress, anxiety, alteration in sleep patterns, or depression. All other systems reviewed and negative. Physical Exam - Vital signs Vitals: Temp Pulse Resp BP Pulse Ox 98.5 F 89 16 142/99 H 97 06/24/19 12:08 06/24/19 12:08 06/24/19 12:08 06/24/19 12:08 06/24/19 12:08 - Notes Notes: PHYSICAL EXAMINATION: GENERAL: Appears well, healthy, well-nourished, no acute distress. HEAD: Normocephalic, atraumatic. EYES: PERRL, conjunctiva normal, all extraocular movements intact, sclera nonicteric ENT: Moist mucous membranes. Erythematous and bulging left tympanic membrane. Small amount of erythema noted to right tympanic membrane. NECK: Supple, no noticeable swelling, redness, rash. Normal range of motion. LUNGS: Equal breath sounds bilaterally and clear to auscultation. No wheezes rales or rhonchi. CARDIOVASCULAR: S1-S2, regular rate, regular rhythm. Radial pulses 2+, normal. ABDOMEN: Normoactive bowel sounds. Soft, nontender, no guarding, no rebound tenderness, and no masses palpated. EXTREMITIES: Normal strength and range of motion, no pitting or edema. No cyanosis. NEUROLOGICAL: Moves all extremities upon command. Strength 5/5 in all extremities. PSYCH: Normal mood, normal affect. SKIN: Warm, dry. No rash, lesions, ulcerations noted. Normal skin turgor. Course - Re-evaluation Re-evalutation: 06/24/19 15:42 Patient's labs are unremarkable. No leukocytosis noted. Urine has a small amount of leukocytes, but patient denies any dysuria. Influenza screen is negative. Patient does have injected tympanic membranes bilaterally. Patient will be started on Augmentin. She will follow-up with her primary care provider. No tenderness noted at mastoid process, therefore I have a low suspicion for mastoiditis. I have very low suspicion for any life-threatening etiology at this time. Patient's left tympanic membrane is worse than the right. I reviewed the patient's blood pressure from when she was here in July of this year. Her blood pressure is the same. I advised her to work on diet and exercise, as her BMI is 45. Educated her that diet and exercise will help with her blood pressure. She will follow-up with her primary care provider and discuss options. She is in agreement with this plan. Follow-up precautions were given. Verbal discharge instructions were given to the patient. They verbalized understanding. They are stable for discharge. - Vital Signs Vital signs: Temp Pulse Resp BP Pulse Ox 98.5 F 89 16 142/99 H 97 06/24/19 12:08 06/24/19 12:08 06/24/19 12:08 06/24/19 12:08 06/24/19 12:08 - Laboratory Result Diagrams: 06/24/19 13:24 06/24/19 13:24 Laboratory results interpreted by me: 06/24/19 06/24/19 13:24 13:24 RBC 5.33 H MCV 76 L MCH 24.9 L RDW 15.5 H Ur Leukocyte Esterase SMALL H Urine Ascorbic Acid 20 H Discharge - Discharge Clinical Impression: Otitis media Qualifiers: Otitis media type: suppurative Chronicity: acute Laterality: bilateral Rec urrence: not specified as recurrent Spontaneous tympanic membrane rupture: without spontaneous rupture Qualified Code(s): H66.003 - Acute suppurative otitis media without spontaneous rupture of ear drum, bilateral Condition: Stable Disposition: HOME, SELF-CARE Additional Instructions: You were seen today for ear pain and have an acute ear infection. Please take the antibiotic that has been prescribed until it is completed even if you are feeling better before you have finished all the antibiotics. For your pain: Take ibuprofen 600 mg and acetaminophen 1000 mg every 6 hours together as needed for pain. Return if you have worsening of your pain, loss of hearing in the affected ear, worsening facial pain, headaches, pass out, or any other symptoms that are worrisome to you. Please continue your Mary and start using Flonase to help with your symptoms. Your blood pressure was 142/99 here in the emergency department. Please have your blood pressure rechecked by your primary care provider when you follow-up with them. Please start with diet and exercise to help bring down your blood pressure. Prescriptions: Amox Tr/Potassium Clavulanate [Augmentin 875-125 Tablet] 1 tab PO BID 10 Days #20 tablet Fluticasone Propionate [Flonase Nasal [place] 50 Mcg/[place] 16 gm] 2 sprays NASL DAILY #1 inhaler Forms: Return to Work Referrals: RO JAIN MD [Primary Care Provider] - Follow up in 1 week
[2019-06-24 15:21] LABS: A TYPE INFLUENZA AG NEGATIVE (NEGATIVE); B INFLUENZA AG NEGATIVE (NEGATIVE)
== END 2019-06-24 16:06 | disposition home or self-care (01) ==
LOC: ER 11:58
DX: H66.003 Acute suppurative otitis media without spontaneous rupture of ear drum, bilateral (principal); Z20.828 Contact with and (suspected) exposure to other viral communicable diseases; I10 Essential (primary) hypertension; R51 Headache
CPT/HCPCS: 99284; 96372; 36415; 85025; 81025; 80053; 81001; 87804; J1885

== ENCOUNTER 2020-05-31 21:35 | Emergency (ER) | payer OTHER ==
[2020-05-31 22:30] LABS: ABSOLUTE BASOPHILS # (AUTO) 0.1 10^3/uL (0.0-0.2); ABSOLUTE EOSINOPHILS # (AUTO) 0.3 10^3/uL (0.0-0.6); ABSOLUTE LYMPHOCYTES (AUTO) 2.5 10^3/uL (0.5-4.7); ABSOLUTE MONOCYTES (AUTO) 1.1 10^3/uL (0.1-1.4); ABSOLUTE NEUT (AUTO) 7.6 10^3/uL (1.7-8.2); BASOPHILS % (AUTO) 0.9 % (0-2); EOSINOPHILS % (AUTO) 2.8 % (0-6); HEMATOCRIT 37.5 % (36.0-47.0); HEMOGLOBIN 12.2 g/dL (12.0-15.5); LYMPHOCYTES % (AUTO) 21.7 % (13-45); MEAN CORPUSCULAR HEMOGLOBIN 24.5 pg (27.0-33.4); MEAN CORPUSCULAR HGB CONC 32.4 g/dL (32.0-36.0); MEAN CORPUSCULAR VOLUME 76 fl (80-97); MONOCYTES % (AUTO) 9.3 % (3-13); PLATELET COUNT 347 10^3/uL (150-450); RED BLOOD COUNT 4.96 10^6/uL (3.72-5.28); RED CELL DISTRIBUTION WIDTH 16.2 % (11.5-14.0); SEGMENTED NEUTROPHILS % (AUTO) 65.3 % (42-78); TOTAL CELLS COUNTED % (AUTO) 100 %; WHITE BLOOD COUNT 11.7 10^3/uL (4.0-10.5)
[2020-05-31 22:58] LABS: ALBUMIN 3.7 g/dL (3.5-5.0); ALKALINE PHOSPHATASE 124 U/L (38-126); ASPARTATE AMINO TRANSFERASE 25 U/L (14-36); BILIRUBIN,DIRECT 0.1 mg/dL (0.0-0.4); BILIRUBIN,TOTAL 0.2 mg/dL (0.2-1.3); BLOOD UREA NITROGEN 12 mg/dL (7-20); CARBON DIOXIDE 29 mmol/L (22-30); CHLORIDE 105 mmol/L (98-107); CREATINE KINASE 106 U/L (30-135); GLUCOSE 112 mg/dL (75-110); POTASSIUM 3.5 mmol/L (3.6-5.0); TOTAL PROTEIN 7.2 g/dL (6.3-8.2)
[2020-05-31 23:01] LABS: ANION GAP 4 (5-19)
[2020-05-31 23:08] LABS: CREATINE KINASE MB 0.84 ng/mL (<4.55); TROPONIN I < 0.012 ng/mL
--- NOTE | 2020-05-31 23:29 | RADIOLOGY REPORT (SQ) ---
EXAM DESCRIPTION: X-RAY CHEST- TWO VIEWS CLINICAL HISTORY: Chest pain COMPARISON: February 07, 2020 TECHNIQUE: 2 views of the chest FINDINGS: There are overlying EKG leads. There are no discrete air space infiltrates, pneumothoraces or pleural effusions. The pulmonary vascularity is normal. The cardiomediastinal silhouette is normal in size. Osseous structures appear grossly stable. There is redemonstration of a dextroscoliotic curvature of the thoracic spine. IMPRESSION: There are no acute lung parenchymal findings.
[2020-06-01] MEDS ORDERED: PREDNISONE 20 MG TABLET PO ONE (00:13)
[2020-06-01] MEDS ORDERED: HYDROCODONE/ACETAMINOPHEN 5-325 MG (6 TAB/ER DISP) PO PRN (00:13)
[2020-06-01] MEDS ORDERED: HYDROCODONE/ACETAMINOPHEN 5-325 MG TABLET PO ONE (00:13)
--- NOTE | 2020-06-01 00:19 | ER Document Report ---
ED General - General Chief Complaint: Arm Pain Stated Complaint: CANT MOVE RIGHT ARM/CHEST PAIN Time Seen by Provider: 05/31/20 23:07 Primary Care Provider: RO JAIN MD [Primary Care Provider] - Follow up as needed SAMANTHA HERNANDEZ DO [ACTIVE STAFF] - Follow up as needed (calll for appointment if symptoms haven't improved in 5 days) TRAVEL OUTSIDE OF THE [place] IN LAST 30 DAYS: No - HPI Context: Time: 2306 Chief Complaint: [Right upper arm pain] [This is a 35-year-old female presenting with a complaint of right arm pain. Patient does not know if she "slept on it wrong" but she notices that she has a persistent pain in her right upper arm that shoots up towards her shoulder. Patient states she has slight tingling in her index fingertip as well patient denies recent trauma or other strenuous activity. Patient states she is here mainly because she was worried she is having a stroke. ] History obtained from [patient] Symptoms began:[1 day ago] Onset: [Sudden] Timing: [Upon awakening] Quality: [Sharp] Intensity: [5] Location: [Right upper arm] Radiation: [Denies] [The pain does not migrate to a new location.] Aggravating factors: Movement Relieving factors: [none] [Denies] SOB [Denies] nausea [Denies] vomiting [Denies] sweats [Denies] fever [Denies] cough [Denies] calf or leg swelling or pain - Related Data Allergies/Adverse Reactions: metoclopramide [From Reglan] Adverse Reaction (Verified 05/31/20 22:56) Home Medications: iron, sertraline, hydroxyzine Past Medical History - General Information source: Patient - Social History Smoking Status: Never Smoker Frequency of alcohol use: Occasional Drug Abuse: None Family History: Reviewed & Not Pertinent Patient has homicidal ideation: No - Past Medical History Cardiac Medical History: Reports: Hx Hypertension Denies: Hx Heart Attack Pulmonary Medical History: Reports: Hx Pneumonia - Hx of 2005 Denies: Hx Asthma, Hx Bronchitis, Hx COPD Neurological Medical History: Denies: Hx Cerebrovascular Accident, Hx Seizures Renal/ Medical History: Denies: Hx Peritoneal Dialysis GI Medical History: Musculoskeletal Medical History: Denies Hx Arthritis Infectious Medical History: Past Surgical History: Reports: Hx Cholecystectomy. Denies: Hx Pacemaker - Immunizations Hx Diphtheria, Pertussis, Tetanus Vaccination: Yes Review of Systems - Review of Systems Notes: Review of systems as below unless otherwise stated in HPI. CONSTITUTIONAL [No] fever, [No] chills. EYES [No] eye pain. ENT [No] URI symptoms, [No] sore throat, [No] ear pain. CARDIOVASCULAR [No] chest pain, [No] palpitations, [No] edema. RESPIRATORY [No] Cough, [No] SOB, [No] wheezing. GASTROINTESTINAL [No] abdominal pain, [No] nausea, [No] Diarrhea, [No] Vomiting, [No] constipation, [No] melena, [No] rectal bleeding. GENITOURINARY [No] dysuria, [No] urinary frequency, [No] hematuria, [No] urinary urgency, [No] vaginal discharge, [No] vaginal bleeding. MUSCULOSKELETAL [No] Back pain. SKIN [No] Rash. NEUROLOGIC [No] Headache, [No] recent seizures, [No] paralysis,[No] parathesias. ENDOCRINE [No] polyuria. HEMO/LYMPATIC [No] easy brusing PSYCHIATRIC [No] depression. Physical Exam - Vital signs Vitals: Temp Pulse Resp BP Pulse Ox 98.8 F 106 H 19 177/113 H 98 05/31/20 21:41 05/31/20 21:41 05/31/20 21:41 05/31/20 21:41 05/31/20 21:41 - Notes Notes: CONSTITUTIONAL [Vital signs reviewed, Patient appears comfortable, Alert and oriented X 3, Normal stature.] HEAD [Atraumatic, Normocephalic.] EYES [Eyes are normal to inspection, No discharge from eyes, Extraocular muscles intact, Sclera are normal, Conjunctiva are normal.] ENT [External ears normal to inspection, Nose examination normal, Mouth normal to inspection.] NECK [Normal ROM, No jugular venous distention, No meningeal signs, ] RESPIRATORY CHEST [Chest is nontender, Breath sounds normal, No respiratory distress.] CARDIOVASCULAR [RRR, No murmurs, Normal S1 S2, No rub, No gallop.] ABDOMEN [Abdomen is nontender, No pulsatile masses, No other masses, Bowel sounds normal, No distension, No peritoneal signs, No hernias.] BACK [There is no CVA Tenderness, There is no tenderness to palpation, Normal inspection.] UPPER EXTREMITY No cyanosis, No clubbing, No edema, no deformity, no ecchymosis. Patient has pain when she tries to AB duct her right upper extremity from midline LOWER EXTREMITY [Inspection normal, No cyanosis, No clubbing, No edema, No calf tenderness, NEURO [No focal motor deficits, No focal sensory deficits, Speech normal.] SKIN [Skin is warm, Skin is dry, Skin is normal color.] LYMPHATIC [No adenopathy in neck.] PSYCHIATRIC [Normal affect. ] Course - Re-evaluation Re-evalutation: 06/01/20 07:24 Results of ED MSE discussed with patient. All questions were answered prior to discharge. Emergency signs and symptoms, reasons to return to the emergency department discussed with patient. - Vital Signs Vital signs: Temp Pulse Resp BP Pulse Ox 98.8 F 106 H 17 163/128 H 100 05/31/20 21:41 05/31/20 21:41 06/01/20 00:23 06/01/20 00:23 06/01/20 00:23 - Laboratory Result Diagrams: 05/31/20 22:15 05/31/20 22:15 Laboratory results interpreted by me: 05/31/20 05/31/20 22:15 22:15 WBC 11.7 H MCV 76 L MCH 24.5 L RDW 16.2 H Potassium 3.5 L Anion Gap 4 L Glucose 112 H - Diagnostic Test Radiology reviewed: Reports reviewed - EKG Interpretation by Me Additional EKG results interpreted by me: 06/01/20 07:26 EKG obtained on 05/31/2020 at 2144 hrs. was interpreted by this MD. Findings: Sinus tachycardia, heart rate 104, normal axis, RI interval appears within normal limits, P waves proceed QRS complexes, QRS complexes appear narrow, QTC is 463, there are no obvious patterns of ST segment elevation depression or reciprocal changes seen to suggest acute myocardial ischemia or infarction. There is no prior EKG available for comparison. Impression: Sinus tachycardia with nonspecific ST segments. Discharge - Discharge Clinical Impression: Cervical radiculopathy Condition: Stable Disposition: HOME, SELF-CARE Additional Instructions: Radiculopathy Radiculopathy is irritation of a nerve. Sometimes this is called "pinched nerve." The pain can be sharp and stabbing, constant and dull, or burning in nature. The pain can occur in any area of the chest, shoulders, or arms. Sometimes the pain is provoked by coughing or moving. Radiculopathy can be caused by physical pressure on a nerve, such as a herniated disc or swollen joint in the spine. It can also be caused by viral infections within the nerve or by nerve damage due to diabetes or blood vessel disease. Radicular pain is treated with antiinflammatory medicine. Injections may help resistant cases, if we can identify a single nerve that's causing the pain. Surgery is usually not necessary. If symptoms do not improve with time, you may need additional testing, such as an MRI or EMG (electromyogram). Return if there is local weakness or numbness, shortness of breath, increasing pain, or other new symptoms. Return to the Emergency Department without delay if any worse. HOME CARE INSTRUCTIONS & INFORMATION: Thank you for choosing us for your medical needs. We hope you're satisfied with the care you received. After you leave, you must properly care for your problem and, at the same time, observe its progress. Any condition can change. Some illnesses can change rapidly over hours or days. If your condition worsens, return to the Emergency Department or see your physician promptly. ABOUT YOUR X-RAYS AND EKG'S: If you had an EKG or X-rays taken, they have been read by the Emergency Physician. The X-rays and EKG's will also be read by a Radiologist or Road Consultant within 24 hours. If discrepancies are noted, you will be notified by telephone. Please be certain the ED has a correct telephone number & address where you can be reached. Also, realize that some fractures or abnormalities do not show up on initial X-rays. If your symptoms continue, see your physician. ABOUT YOUR LABORATORY TEST: If you had laboratory tests, the results have been reviewed by the Emergency Physician. Some test results (for example cultures) may not be available for several days. You will be contacted if any test result shows you need additional treatment. Please be certain the ED has a correct telephone number and address where you can be reached. ABOUT YOUR MEDICATIONS: You will receive instructions on how to take your medicine on the prescription label you receive. Additional information may be provided by the Pharmacy. If you have questions afterwards, call the ED for clarification or further instructions. Some prescribed medications may cause drowsiness. Do not perform tasks such as driving a car or operating machinery without consulting your Pharmacist. If you feel you need a refill of pain medication, your condition will need re-evaluation. Please do not call for a refill of any medication. ABOUT YOUR SIGNATURE: Signature of this document acknowledges to followin. Understanding that you received emergency treatment and that you may be released before al medical problems are known or treated. Please be certain the ED has a correct phone number & address where you can be reached. 2. Acknowledgement that you will arrange for follow-up care as recommended. 3. Authorization for the Emergency Physician to provide information to your follow-up Physician in order to maximize your care. AT ANY TIME, IF YOUR SYMPTOMS CHANGE SIGNIFICANTLY OR WORSEN OR YOU DEVELOP NEW SYMPTOMS, RETURN TO THE EMERGENCY DEPARTMENT IMMEDIATELY FOR RE-EVALUATION. OUR GOAL IS TO PROVIDE EXCELLENT MEDICAL CARE! WE HOPE THAT WE HAVE MET YOUR EXPECTATIONS DURING YOUR EMERGENCY DEPARTMENT VISIT AND THAT YOU FEEL YOU HAVE RECEIVED EXCELLENT CARE! Prescriptions: Hydrocodone/Acetaminophen [[place] 5-325 mg Tablet] 1 tab PO Q6HP PRN #12 tablet PRN Reason: pain Prednisone [Deltasone 20 mg Tablet] 3 tab PO DAILY 4 Days #12 tablet Forms: Return to Work Referrals: RO JAIN MD [Primary Care Provider] - Follow up as needed SAMANTHA HERNANDEZ DO [ACTIVE STAFF] - Follow up as needed (calll for appointment if symptoms haven't improved in 5 days)
[2020-06-01 00:27] VITALS: BP 163/128
--- NOTE | 2020-06-01 08:17 | EKG REPORT ---
SEVERITY:- OTHERWISE NORMAL ECG - SINUS TACHYCARDIA : Confirmed by: Aparna Mims 01-Jun-2020 08:17:13
== END 2020-06-01 00:52 | disposition home or self-care (01) ==
LOC: ER 21:35
DX: M54.12 Radiculopathy, cervical region (principal); R07.9 Chest pain, unspecified; I10 Essential (primary) hypertension; Z79.899 Other long term (current) drug therapy
CPT/HCPCS: 93005; 99285; 36415; 82553; 82550; 85025; 80053; 84484; 71046; 93010; J7512